=== PATIENT | female | born 1950 | race Caucasian/White ===

== ENCOUNTER 2024-09-29 18:08 | Inpatient (IN) ==
--- NOTE | 2024-09-29 18:55 | DR.EXTPAIN ---
HPI Time seen Time Seen by Provider: 09/29/24 18:55 PCP Primary Care Physician: Gissell Rocha Complaint/Symptoms Chief Complaint:: Pt fell at home today, c/o right thigh, right knee pain COVID-19 Coronavirus risk:travel/contact w/high risk person: No Has patient experienced Coronavirus symptoms: No Source History Provided: EMS Mode of arrival Mode of Arrival: EMS Timing Onset of Chief Complaint: 09/29/24 PMH PMH Past Medical History: Yes Past Medical History: Anxiety, CVA, Depression, Dyslipidemia and Hypertension Past Medical History Comment: hx CVA with right paresis Past Surgical History: Yes Family History History of Family Medical Conditions: Yes Social History Lives Where: Home Travel Risk Coronavirus risk:travel/contact w/high risk person: No Has patient experienced Coronavirus symptoms: No Infectious screening In the last 2 months have you had wt loss of >10#?: NO Have you had fever, night sweats or hemotysis?: No Have you traveled outside the country in the last 6 months?: No Isolation: Standard ROS Review of Systems Constitutional: No Symptoms Reported and See HPI PE Vital Signs Vitals: Vital Signs Temperature 98.9 F Pulse Rate 76 Pulse Rate 75 Pulse Rate 75 Pulse Rate 74 Pulse Rate 76 Pulse Rate 76 Pulse Rate 73 Pulse Rate 72 Pulse Rate 72 Pulse Rate 76 Pulse Rate 76 Pulse Rate 77 Pulse Rate 77 Pulse Rate 78 Respiratory Rate 18 Respiratory Rate 23 Blood Pressure 148/80 Blood Pressure 139/66 Blood Pressure 122/63 Blood Pressure 124/60 Blood Pressure 124/60 Blood Pressure 115/61 Blood Pressure 114/61 Blood Pressure 112/69 Blood Pressure 112/69 O2 Sat by Pulse Oximetry 92 O2 Sat by Pulse Oximetry 95 O2 Sat by Pulse Oximetry 94 O2 Sat by Pulse Oximetry 95 O2 Sat by Pulse Oximetry 96 O2 Sat by Pulse Oximetry 94 O2 Sat by Pulse Oximetry 93 O2 Sat by Pulse Oximetry 93 O2 Sat by Pulse Oximetry 93 O2 Sat by Pulse Oximetry 92 O2 Sat by Pulse Oximetry 93 O2 Sat by Pulse Oximetry 91 O2 Sat by Pulse Oximetry 91 O2 Sat by Pulse Oximetry 93 O2 Sat by Pulse Oximetry 94 ROR Labs Reviewed 09/29/24 19:10 09/29/24 19:10 Laboratory: WBC 12.2 X10^3/uL (3.6-10.0) H 09/29/24 19:10 RBC 4.70 X10^6/uL (3.5-5.4) 09/29/24 19:10 Hgb 14.3 g/dL (12.0-16.0) 09/29/24 19:10 Hct 42.6 % (36.0-47.0) 09/29/24 19:10 MCV 90.5 fL (80.0-100.0) 09/29/24 19:10 MCH 30.3 pg (27.0-34.0) 09/29/24 19:10 MCHC 33.5 g/dL (33.0-35.0) 09/29/24 19:10 RDW 13.9 % (11.6-16.5) 09/29/24 19:10 Plt Count 215 X10^3/uL (150.0-450.0) 09/29/24 19:10 MPV 8.1 fL (7.4-11.0) 09/29/24 19:10 Neut % (Auto) 78.5 % (42.0-75.0) H 09/29/24 19:10 Lymph % (Auto) 12.8 % (21.0-51.0) L 09/29/24 19:10 [place] % (Auto) 8.5 % (0.0-13.0) 09/29/24 19:10 Eos % (Auto) 0.0 % (0.9-2.9) L 09/29/24 19:10 Baso % (Auto) 0.2 % (0.2-1.0) 09/29/24 19:10 Neut # (Auto) 9.6 x10^3/uL (2.2-4.8) H 09/29/24 19:10 Lymph # (Auto) 1.6 X10^3/uL (1.3-2.9) 09/29/24 19:10 [place] # (Auto) 1.0 x10^3/uL (0.3-0.8) H 09/29/24 19:10 Eos # (Auto) 0.0 x10^3/uL (0.0-0.2) 09/29/24 19:10 Baso # (Auto) 0.0 X10^3/uL (0.0-0.1) 09/29/24 19:10 Absolute Nucleated RBC 0.1 /100WBC 09/29/24 19:10 PT 14.0 SECONDS (11.8-14.3) 09/29/24 19:10 INR Target Range - 09/29/24 19:10 INR 1.06 (0.8-1.3) 09/29/24 19:10 D-Dimer Cancelled 09/29/24 19:10 Sodium 140 mmol/L (136-145) 09/29/24 19:10 Corrected Sodium 140 mmol/L (136-145) 09/29/24 19:10 Potassium 4.1 mmol/L (3.5-5.1) 09/29/24 19:10 Chloride 104 mmol/L (98-107) 09/29/24 19:10 Carbon Dioxide 21.4 mmol/L (21-32) 09/29/24 19:10 BUN 22 mg/dL (7-18) H 09/29/24 19:10 Creatinine 1.25 mg/dL (0.55-1.02) H 09/29/24 19:10 Est GFR (MDRD) Af Amer 54 (>60) L 09/29/24 19:10 Est GFR (MDRD) Non-Af 44 (>60) L 09/29/24 19:10 Glucose 115 mg/dL (65-99) H 09/29/24 19:10 Calcium 9.0 mg/dL (8.5-10.1) 09/29/24 19:10 Corrected Calcium TNP 09/29/24 19:10 Total Bilirubin 1.00 mg/dL (0.2-1.0) 09/29/24 19:10 AST 50 Units/L (15-37) H 09/29/24 19:10 ALT 29 Units/L (12-78) 09/29/24 19:10 Alkaline Phosphatase 88 Units/L (46-116) 09/29/24 19:10 Creatine Kinase 2296 Units/L (26-192) H 09/29/24 19:10 Creatine Kinase Cancelled 09/29/24 19:10 Troponin I High Sens 45.5 ng/L (4.0-60.0) 09/29/24 19:10 B-Natriuretic Peptide 44.7 pg/mL (0-79) 09/29/24 19:10 Total Protein 8.9 g/dL (6.4-8.2) H 09/29/24 19:10 Albumin 3.5 g/dL (3.4-5.0) 09/29/24 19:10 Globulin 5.4 g/dL (2.5-4.5) H 09/29/24 19:10 Albumin/Globulin Ratio 0.6 Ratio (1.1-2.1) L 09/29/24 19:10 Specimen Type Catherized urine 09/29/24 21:16 Urine Color Straw (YELLOW) 09/29/24 21:16 Urine Appearance Slightly hazy (CLEAR) 09/29/24 21:16 Urine pH 7.0 (5.0 - 8.0) 09/29/24 21:16 Ur Specific [place] 1.015 (1.000-1.030) 09/29/24 21:16 Urine Protein 1+ (NEGATIVE) 09/29/24 21:16 Urine Glucose (UA) Negative (NEGATIVE) 09/29/24 21:16 Urine Ketones Negative (NEGATIVE) 09/29/24 21:16 Urine Blood 3+ (NEGATIVE) 09/29/24 21:16 Urine Nitrite Negative (NEGATIVE) 09/29/24 21:16 Urine Bilirubin Negative (NEGATIVE) 09/29/24 21:16 Urine Urobilinogen Normal (NORMAL) 09/29/24 21:16 Ur Leukocyte Esterase 1+ (NEGATIVE) 09/29/24 21:16 Urine RBC 5-10 /HPF (0-3) A 09/29/24 21:16 Urine WBC 10-20 /HPF (0-5) A 09/29/24 21:16 Ur Squamous Epith Cells Negative /HPF (NEGATIVE) 09/29/24 21:16 Urine Bacteria 3+ /HPF (NEGATIVE) 09/29/24 21:16 Ur Culture Indicated? Yes/culture set up 09/29/24 21:16 Opioid Opioid Risk Tool Age (Phil box if 16-45): No History of Preadolescent Sexual Abuse: No Total: 0 Total Score Risk Category: Low Risk Copyright: Mario Alberto HARLEY predicting aberrant behaviors Discharge Plan Diagnosis Discharge Problem: UTI (urinary tract infection), Rhabdomyolysis, Acute pain of left thigh, Acute renal failure Discharge Plan Patient Disposition: ADMITTED INPATIENT Condition: Stable Orders to Discharge Patient Discharge Orders: Transfer (Routine); Ordered 09/29/24 Ordered By: CORTEZ PEREZ
--- NOTE | 2024-09-29 19:13 | EKG ---
Test Reason : fall Blood Pressure : */* mmHG Vent. Rate : 73 BPM Atrial Rate : 73 BPM P-R Int : 160 ms QRS Dur : 70 ms QT Int : 518 ms P-R-T Axes : 53 14 61 degrees QTc Int : 570 ms Normal sinus rhythm Nonspecific ST and T wave abnormality Prolonged QT Abnormal ECG No previous ECGs available Confirmed by Idris Pierre MD ([id number]) on 09/30/2024 6:12:09 AM Referred By: Confirmed By: Idris Pierre MD
[2024-09-29 19:25] LABS: BASOPHILS % (AUTO) 0.2 % (0.2-1.0); HEMATOCRIT 42.6 % (36.0-47.0); HEMOGLOBIN 14.3 g/dL (12.0-16.0); LYMPHOCYTES # (AUTO) 1.6 X10^3/uL (1.3-2.9); LYMPHOCYTES % (AUTO) 12.8 % (21.0-51.0); MEAN CORPUSCULAR HEMOGLOBIN 30.3 pg (27.0-34.0); MEAN CORPUSCULAR HGB CONC 33.5 g/dL (33.0-35.0); MEAN CORPUSCULAR VOLUME 90.5 fL (80.0-100.0); MEAN PLATELET VOLUME 8.1 fL (7.4-11.0); MONOCYTES % (AUTO) 8.5 % (0.0-13.0); NEUTROPHILS # (AUTO) 9.6 x10^3/uL (2.2-4.8); NEUTROPHILS % (AUTO) 78.5 % (42.0-75.0); PLATELET COUNT 215 X10^3/uL (150.0-450.0); RED CELL DISTRIBUTION WIDTH 13.9 % (11.6-16.5); WHITE BLOOD COUNT 12.2 X10^3/uL (3.6-10.0)
[2024-09-29 19:27] LABS: INR 1.06 (0.8-1.3)
[2024-09-29 19:42] LABS: ALANINE AMINOTRANSFERASE 29 Units/L (12-78); ALBUMIN 3.5 g/dL (3.4-5.0); ALKALINE PHOSPHATASE 88 Units/L (46-116); ASPARTATE AMINO TRANSFERASE 50 Units/L (15-37); BLOOD UREA NITROGEN 22 mg/dL (7-18); CARBON DIOXIDE 21.4 mmol/L (21-32); CHLORIDE 104 mmol/L (98-107); COR NA(FOR HYPERGLY) 140 mmol/L (136-145); CREATININE 1.25 mg/dL (0.55-1.02); GLUCOSE 115 mg/dL (65-99); POTASSIUM 4.1 mmol/L (3.5-5.1); SODIUM 140 mmol/L (136-145); TOTAL PROTEIN 8.9 g/dL (6.4-8.2); eGFR NON BLACK RACES 44 (>60)
[2024-09-29 19:43] LABS: CREATINE KINASE 2296 Units/L (26-192)
[2024-09-29] MEDS: NS 1,000 ML IV 1,000 ML IV ONE (20:09)
--- NOTE | 2024-09-29 20:17 | CT ---
EXAM: HEAD (TRAUMA) HISTORY: Pt fell at home today, c/o right thigh, right knee pain; COMPARISON: None. TECHNIQUE: Axial non-contrast images of the head were obtained with coronal and sagittal reformats provided. Radiation dose: 822.74 mGy-cm total DLP FINDINGS: No abnormal areas of acute attenuation in the brain parenchyma. Large area of encephalomalacia in the left parietal lobe. Garg-white differentiation remains intact. No intracranial, extra-axial, fluid collection. No hemorrhage. Periventricular chronic microvascular disease. No mass, mass effect or midline shift. Age related brain parenchymal global atrophy. No ventriculomegaly. No acute fracture. Sinuses are well aerated. Mastoid air cells are well aerated. Globes and intra-orbital contents are unremarkable. IMPRESSION: No acute intracranial abnormality identified. THIS IS AN ELECTRONICALLY VERIFIED FINAL REPORT 09/29/2024 8:14 PM - Electronically signed by Cecil Evans MD
--- NOTE | 2024-09-29 21:00 | CT ---
EXAM: CERVICAL SPINE W/O CON HISTORY: Pt fell at home today, c/o right thigh, right knee pain; COMPARISON: None. TECHNIQUE: Axial non-contrast images of the cervical spine with coronal and sagittal reformats. Radiation dose: 145.16 mGy-cm total DLP FINDINGS: Vertebral body heights are maintained with normal alignment. Mild degenerative disc disease at C5-C6 and C6-C7. No fracture identified. Posterior elements are intact without jumped or perched facets. Prevertebral soft tissues are normal. Atlantoaxial articulation is intact. Soft tissues are unremarkable. Lung apices are unremarkable. IMPRESSION: No imaging findings of acute traumatic cervical spine injury. THIS IS AN ELECTRONICALLY VERIFIED FINAL REPORT 09/29/2024 8:57 PM - Electronically signed by Cecil Evans MD
[2024-09-29 21:25] LABS: BILIRUBIN,URINE NEGATIVE (NEGATIVE); BLOOD/HEMOGLOBIN,URINE 3+ (NEGATIVE); GLUCOSE, URINE NEGATIVE (NEGATIVE); KETONES,URINE NEGATIVE (NEGATIVE); LEUKOCYTE ESTERASE ,URINE 1+ (NEGATIVE); NITRITES,URINE NEGATIVE (NEGATIVE); PROTEIN,URINE 1+ (NEGATIVE); UROBILINOGEN,URINE NORMAL (NORMAL)
[2024-09-29 21:26] LABS: APPEARANCE,URINE SLIGHTLY HAZY (CLEAR); COLOR,URINE STRAW (YELLOW)
[2024-09-29 21:35] LABS: SQUAMOUS EPITHELIAL CELL,UR NEGATIVE /HPF (NEGATIVE)
[2024-09-29 21:36] LABS: BACTERIA,URINE 3+ /HPF (NEGATIVE)
[2024-09-29] MEDS ORDERED: ROCEPHIN VIAL 1 GRAM ONE (21:45)
[2024-09-29] MEDS: ROCEPHIN VIAL 1 GRAM 1 G in NS 100 ML IV 100 ML IV ONE (21:48)
[2024-09-29] MEDS ORDERED: NORCO 5/325 MG TAB ONE (22:00)
[2024-09-29] MEDS: NORCO 5/325 MG TAB PO ONE (22:02)
[2024-09-29 23:53] VITALS: BMI 28.0
[2024-09-30] MEDS ORDERED: ZOFRAN INJ 4 MG VIAL IVP PRN (00:04)
[2024-09-30] MEDS: MORPHINE SULFATE INJ 4 MG IVP PRN (00:36)
[2024-09-30] MEDS: NS 1,000 ML IV 1,000 ML ONE (00:39)
[2024-09-30] MEDS: NS 1,000 ML IV 1,000 ML IV SCH (00:40)
[2024-09-30 05:51] LABS: BASOPHILS % (AUTO) 0.3 % (0.2-1.0); EOSINOPHILS # (AUTO) 0.1 x10^3/uL (0.0-0.2); EOSINOPHILS % (AUTO) 1.4 % (0.9-2.9); HEMATOCRIT 40.7 % (36.0-47.0); HEMOGLOBIN 13.9 g/dL (12.0-16.0); LYMPHOCYTES # (AUTO) 1.7 X10^3/uL (1.3-2.9); MEAN CORPUSCULAR HEMOGLOBIN 31.3 pg (27.0-34.0); MEAN CORPUSCULAR HGB CONC 34.1 g/dL (33.0-35.0); MEAN CORPUSCULAR VOLUME 91.9 fL (80.0-100.0); MEAN PLATELET VOLUME 8.4 fL (7.4-11.0); MONOCYTES # (AUTO) 0.8 x10^3/uL (0.3-0.8); NEUTROPHILS # (AUTO) 6.1 x10^3/uL (2.2-4.8); NEUTROPHILS % (AUTO) 70.3 % (42.0-75.0); PLATELET COUNT 170 X10^3/uL (150.0-450.0); RED BLOOD COUNT 4.43 X10^6/uL (3.5-5.4); WHITE BLOOD COUNT 8.7 X10^3/uL (3.6-10.0)
[2024-09-30 05:52] LABS: INR 1.07 (0.8-1.3)
[2024-09-30 06:05] LABS: ALANINE AMINOTRANSFERASE 27 Units/L (12-78); ALKALINE PHOSPHATASE 76 Units/L (46-116); ASPARTATE AMINO TRANSFERASE 45 Units/L (15-37); BLOOD UREA NITROGEN 19 mg/dL (7-18); CALCIUM 8.5 mg/dL (8.5-10.1); CARBON DIOXIDE 23.3 mmol/L (21-32); CHLORIDE 109 mmol/L (98-107); CHOL/HDL RATIO 2.8 (0.0-5.0); CHOLESTEROL 135 mg/dL (0-200); COR CA(FOR HYPOALB) 9.3 mg/dL (8.5-10.1); CREATININE 1.12 mg/dL (0.55-1.02); GLUCOSE 108 mg/dL (65-99); HDL CHOLESTEROL 48 mg/dL (40-60); MAGNESIUM 2.1 mg/dL (2.0-2.9); POTASSIUM 3.8 mmol/L (3.5-5.1); SODIUM 143 mmol/L (136-145); TOTAL PROTEIN 7.9 g/dL (6.4-8.2); TRIGLYCERIDES 117 mg/dL (0-150); eGFR NON BLACK RACES 50 (>60)
[2024-09-30 06:06] LABS: CREATINE KINASE 1893 Units/L (26-192)
--- NOTE | 2024-09-30 06:09 | RAD ---
EXAM: FEMUR, RIGHT HISTORY: Pt fell at home today, c/o right thigh, right knee pain; Unavailable COMPARISON: None. FINDINGS: No acute cortical disruption or dislocation can be identified. Femoral head is well seated within the acetabula. Moderate degenerative osteoarthritic changes are present involving the right hip. Mild degenerative changes involving the right knee joint. No significant soft tissue swelling or injury can be seen. IMPRESSION: Moderate degenerative osteoarthritic changes right hip. Mild degenerative osteoarthritic changes right knee. No acute bony abnormality THIS IS AN ELECTRONICALLY VERIFIED FINAL REPORT 09/30/2024 6:06 AM - Electronically signed by Artem Ltitle MD
[2024-09-30] MEDS: PLAVIX PO SCH (11:35)
[2024-09-30] MEDS: CELEXA PO SCH (11:36)
[2024-09-30] MEDS: LOVENOX INJ 40 MG SYR SC SCH (11:36)
[2024-09-30 12:31] LABS: BILIRUBIN,URINE NEGATIVE (NEGATIVE); BLOOD/HEMOGLOBIN,URINE 3+ (NEGATIVE); GLUCOSE, URINE NEGATIVE (NEGATIVE); KETONES,URINE NEGATIVE (NEGATIVE); LEUKOCYTE ESTERASE ,URINE 3+ (NEGATIVE); NITRITES,URINE POSITIVE (NEGATIVE); PROTEIN,URINE 2+ (NEGATIVE); UROBILINOGEN,URINE NORMAL (NORMAL)
[2024-09-30 12:40] LABS: APPEARANCE,URINE HAZY (CLEAR); COLOR,URINE YELLOW (YELLOW)
[2024-09-30 12:41] LABS: BACTERIA,URINE 1+ /HPF (NEGATIVE); SQUAMOUS EPITHELIAL CELL,UR FEW /HPF (NEGATIVE)
[2024-09-30] MEDS: CATAPRES TAB 0.1 MG PO SCH (20:43)
[2024-09-30] MEDS: ELAVIL PO SCH (20:43)
[2024-09-30] MEDS: ROCEPHIN VIAL 1 GRAM 1 G in NS 100 ML IV 100 ML IV SCH (20:43)
[2024-10-01 06:34] LABS: BASOPHILS % (AUTO) 0.1 % (0.2-1.0); EOSINOPHILS # (AUTO) 0.1 x10^3/uL (0.0-0.2); EOSINOPHILS % (AUTO) 1.8 % (0.9-2.9); HEMATOCRIT 34.7 % (36.0-47.0); HEMOGLOBIN 11.9 g/dL (12.0-16.0); LYMPHOCYTES # (AUTO) 1.7 X10^3/uL (1.3-2.9); LYMPHOCYTES % (AUTO) 21.2 % (21.0-51.0); MEAN CORPUSCULAR HEMOGLOBIN 31.4 pg (27.0-34.0); MEAN CORPUSCULAR HGB CONC 34.3 g/dL (33.0-35.0); MEAN CORPUSCULAR VOLUME 91.7 fL (80.0-100.0); MEAN PLATELET VOLUME 8.4 fL (7.4-11.0); MONOCYTES # (AUTO) 0.6 x10^3/uL (0.3-0.8); MONOCYTES % (AUTO) 8.1 % (0.0-13.0); NEUTROPHILS # (AUTO) 5.4 x10^3/uL (2.2-4.8); NEUTROPHILS % (AUTO) 68.8 % (42.0-75.0); PLATELET COUNT 149 X10^3/uL (150.0-450.0); RED BLOOD COUNT 3.78 X10^6/uL (3.5-5.4); RED CELL DISTRIBUTION WIDTH 13.7 % (11.6-16.5); WHITE BLOOD COUNT 7.9 X10^3/uL (3.6-10.0)
[2024-10-01 06:56] LABS: ALANINE AMINOTRANSFERASE 24 Units/L (12-78); ALBUMIN 2.5 g/dL (3.4-5.0); ALKALINE PHOSPHATASE 65 Units/L (46-116); ASPARTATE AMINO TRANSFERASE 37 Units/L (15-37); BLOOD UREA NITROGEN 13 mg/dL (7-18); CARBON DIOXIDE 19.9 mmol/L (21-32); CHLORIDE 107 mmol/L (98-107); COR CA(FOR HYPOALB) 9.2 mg/dL (8.5-10.1); CREATININE 0.94 mg/dL (0.55-1.02); GLUCOSE 98 mg/dL (65-99); POTASSIUM 3.6 mmol/L (3.5-5.1); SODIUM 139 mmol/L (136-145); TOTAL PROTEIN 6.1 g/dL (6.4-8.2); eGFR NON BLACK RACES > 60 (>60)
[2024-10-01 06:58] LABS: CREATINE KINASE 1239 Units/L (26-192)
[2024-10-01] MEDS: COLACE CAP 100 MG PO PRN (08:10)
[2024-10-01] MEDS: PROTONIX INJ 40 MG VIAL IVP SCH (14:52)
--- NOTE | 2024-10-01 18:06 | NOTE.SOAP ---
Soap Note Note for Day of Date of Exam: 10/01/24 Subjective Data Subjective Data: No acute events overnight. Admitted for UTI and rhabdo. Still feels a little weak but improved. Mercer in place with lemonade-colored urine. Objective Data Objective Data: Elderly female in no acute distress. Hearing intact conversation. Heart regular rate and rhythm. Lungs are clear. Speech is strong. Head NCAT, EOMI, hearing grossly intact. Assessment Assessment: 1. Acute UTI with urine culture pending 2. Rhabdomyolysis 3. Mild anemia with mild thrombocytopenia Plan Plan: Continue current. Continue IV fluids. Monitor for signs of fluid overload. Mercer care. Monitor labs closely. CPK is downtrending.
[2024-10-01] MEDS: MILK OF MAGNESIA PO PRN (22:01)
[2024-10-02 05:59] LABS: BASOPHILS % (AUTO) 0.2 % (0.2-1.0); EOSINOPHILS # (AUTO) 0.1 x10^3/uL (0.0-0.2); EOSINOPHILS % (AUTO) 1.9 % (0.9-2.9); HEMATOCRIT 33.1 % (36.0-47.0); HEMOGLOBIN 11.4 g/dL (12.0-16.0); LYMPHOCYTES # (AUTO) 1.4 X10^3/uL (1.3-2.9); LYMPHOCYTES % (AUTO) 20.5 % (21.0-51.0); MEAN CORPUSCULAR HEMOGLOBIN 31.5 pg (27.0-34.0); MEAN CORPUSCULAR HGB CONC 34.5 g/dL (33.0-35.0); MEAN CORPUSCULAR VOLUME 91.4 fL (80.0-100.0); MEAN PLATELET VOLUME 8.5 fL (7.4-11.0); MONOCYTES # (AUTO) 0.6 x10^3/uL (0.3-0.8); MONOCYTES % (AUTO) 9.1 % (0.0-13.0); NEUTROPHILS # (AUTO) 4.5 x10^3/uL (2.2-4.8); NEUTROPHILS % (AUTO) 68.3 % (42.0-75.0); PLATELET COUNT 156 X10^3/uL (150.0-450.0); RED BLOOD COUNT 3.63 X10^6/uL (3.5-5.4); RED CELL DISTRIBUTION WIDTH 13.8 % (11.6-16.5); WHITE BLOOD COUNT 6.7 X10^3/uL (3.6-10.0)
[2024-10-02 06:10] LABS: ALANINE AMINOTRANSFERASE 31 Units/L (12-78); ALBUMIN 2.2 g/dL (3.4-5.0); ALKALINE PHOSPHATASE 67 Units/L (46-116); ASPARTATE AMINO TRANSFERASE 36 Units/L (15-37); BLOOD UREA NITROGEN 11 mg/dL (7-18); CALCIUM 7.7 mg/dL (8.5-10.1); CARBON DIOXIDE 25.9 mmol/L (21-32); CHLORIDE 105 mmol/L (98-107); COR CA(FOR HYPOALB) 9.1 mg/dL (8.5-10.1); COR NA(FOR HYPERGLY) 137 mmol/L (136-145); CREATININE 0.92 mg/dL (0.55-1.02); GLUCOSE 115 mg/dL (65-99); MAGNESIUM 1.9 mg/dL (2.0-2.9); POTASSIUM 3.6 mmol/L (3.5-5.1); SODIUM 137 mmol/L (136-145); TOTAL PROTEIN 5.7 g/dL (6.4-8.2); eGFR NON BLACK RACES > 60 (>60)
[2024-10-02] MEDS ORDERED: CONSULT PHARMACY - POTASSIUM & MAGNESIUM XX SCH (07:00)
[2024-10-02] MEDS: MAG-OX TAB PO SCH (09:02)
[2024-10-02] MEDS: K-DUR TAB 20 MEQ PO SCH (09:03)
--- NOTE | 2024-10-02 16:08 | NOTE.SOAP ---
Soap Note Note for Day of Date of Exam: 10/02/24 Subjective Data Subjective Data: No overnight events. Seen with nurse for morning rounds. Mild anemia with no leukocytosis. Objective Data Objective Data: Well-developed, well-nourished and in no acute distress. Head NCAT. Hearing intact conversation. Heart regular rate and rhythm. Bowel sounds present. Lungs clear. Assessment Assessment: 1. UTI, GNR growing. 2. Rhabdomyolysis, acute, nontraumatic. 3. Generalized weakness. Plan Plan: Continue current. May benefit from rehab. Awaiting culture results.
[2024-10-03] MEDS: ROBITUSSIN DM PO PRN (00:04)
[2024-10-03] MEDS: TYLENOL 325 MG TAB PO PRN (00:04)
[2024-10-03 05:55] LABS: BASOPHILS % (AUTO) 0.3 % (0.2-1.0); EOSINOPHILS # (AUTO) 0.2 x10^3/uL (0.0-0.2); HEMATOCRIT 33.6 % (36.0-47.0); HEMOGLOBIN 11.7 g/dL (12.0-16.0); LYMPHOCYTES # (AUTO) 1.4 X10^3/uL (1.3-2.9); LYMPHOCYTES % (AUTO) 26.8 % (21.0-51.0); MEAN CORPUSCULAR HEMOGLOBIN 31.5 pg (27.0-34.0); MEAN CORPUSCULAR HGB CONC 34.8 g/dL (33.0-35.0); MEAN CORPUSCULAR VOLUME 90.8 fL (80.0-100.0); MEAN PLATELET VOLUME 8.6 fL (7.4-11.0); MONOCYTES # (AUTO) 0.7 x10^3/uL (0.3-0.8); MONOCYTES % (AUTO) 12.5 % (0.0-13.0); NEUTROPHILS % (AUTO) 57.4 % (42.0-75.0); PLATELET COUNT 172 X10^3/uL (150.0-450.0); RED CELL DISTRIBUTION WIDTH 13.7 % (11.6-16.5); WHITE BLOOD COUNT 5.2 X10^3/uL (3.6-10.0)
[2024-10-03 06:11] LABS: ALANINE AMINOTRANSFERASE 30 Units/L (12-78); ALBUMIN 2.1 g/dL (3.4-5.0); ALKALINE PHOSPHATASE 63 Units/L (46-116); ASPARTATE AMINO TRANSFERASE 25 Units/L (15-37); BLOOD UREA NITROGEN 11 mg/dL (7-18); CALCIUM 8.1 mg/dL (8.5-10.1); CARBON DIOXIDE 25.9 mmol/L (21-32); CHLORIDE 108 mmol/L (98-107); COR CA(FOR HYPOALB) 9.6 mg/dL (8.5-10.1); CREATINE KINASE 230 Units/L (26-192); CREATININE 0.95 mg/dL (0.55-1.02); GLUCOSE 105 mg/dL (65-99); MAGNESIUM 2.2 mg/dL (2.0-2.9); POTASSIUM 3.8 mmol/L (3.5-5.1); SODIUM 141 mmol/L (136-145); TOTAL PROTEIN 5.8 g/dL (6.4-8.2); eGFR NON BLACK RACES > 60 (>60)
[2024-10-03] MEDS ORDERED: CONSULT PHARMACY - POTASSIUM & MAGNESIUM XX SCH (07:00)
[2024-10-03 08:07] VITALS: RESP 18
[2024-10-03] MEDS: K-DUR TAB 20 MEQ PO SCH (08:21)
[2024-10-03] MEDS: CIPRO IV 400 MG PREMIX* 400 MG/200 ML IV.SOLN. IV SCH (09:46)
--- NOTE | 2024-10-03 12:48 | DR.H&P ---
H&P History & Physical for Day of: H&P Date: 09/30/24 Chief Complaint Chief Complaint: generalized weakness dysuria History of Present Illness History of Present Illness: Patient is a 77-year-old female with a past medical history of CVA, hyperlipidemia, hypertension, mixed anxiety/depression, presenting with right lower extremity pain, generalized weakness, and dysuria. She reports symptoms presented for the past 2 to 3 days and progressively worsened. She did have some confusion. Labs/imaging: WBC 8.7, hemoglobin 13.9, platelets 170, sodium 143, potassium 3.8, creatinine 1.12, glucose 108. CK22 [id number] 93, UA positive, urine culture pending, x-ray revealed degenerative changes moderate on the right hip and mild on the right knee. No other acute findings. CT of the head was negative for any intracranial findings, CT of the cervical was also negative. Patient was admitted for acute cystitis, rhabdomyolysis, generalized weakness. She was started on IV fluids, IV antibiotics. Will order PT/OT. Restart home medications. Otherwise continue with current treatment plan. Continue closely monitor and follow-up labs/imaging. Past Medical History Past Medical History: Anxiety, CVA, Depression, Dyslipidemia and Hypertension Past Surgical History Surgical History: Social History Does patient currently use any type of tobacco product: No Type of Tobacco Use: None Does any household member use tobacco: No Alcohol Use: None Drug Use: None Medications Home Medications: Home Medications Medication Instructions Recorded Confirmed Type amitriptyline 25 mg tablet 25 mg PO QHS 09/29/2409/29 History citalopram 20 mg tablet 20 mg PO QDAY 09/29/2409/29 History clonidine HCl 0.1 mg tablet 0.1 mg PO QHS 09/29/2404/13 History clopidogrel 75 mg tablet 75 mg PO QDAY 09/29/2409/29 History ondansetron 4 mg disintegrating 4 mg PO Q6H PRN 09/29/24 History tablet simvastatin 40 mg tablet 40 mg PO QPM 09/29/24 History Allergies Allergies Allergy/AdvReac Type Severity Reaction Status Date / Time No Known Allergies Allergy Verified 09/29/24 18:11 Labs 10/03/24 05:25 10/03/24 05:25 Labs: Laboratory WBC 8.7 X10^3/uL (3.6-10.0) 09/30/24 05:18 RBC 4.43 X10^6/uL (3.5-5.4) 09/30/24 05:18 Hgb 13.9 g/dL (12.0-16.0) 09/30/24 05:18 Hct 40.7 % (36.0-47.0) 09/30/24 05:18 MCV 91.9 fL (80.0-100.0) 09/30/24 05:18 MCH 31.3 pg (27.0-34.0) 09/30/24 05:18 MCHC 34.1 g/dL (33.0-35.0) 09/30/24 05:18 RDW 14.0 % (11.6-16.5) 09/30/24 05:18 Plt Count 170 X10^3/uL (150.0-450.0) 09/30/24 05:18 MPV 8.4 fL (7.4-11.0) 09/30/24 05:18 Neut % (Auto) 70.3 % (42.0-75.0) 09/30/24 05:18 Lymph % (Auto) 19.0 % (21.0-51.0) L 09/30/24 05:18 [place] % (Auto) 9.0 % (0.0-13.0) 09/30/24 05:18 Eos % (Auto) 1.4 % (0.9-2.9) 09/30/24 05:18 Baso % (Auto) 0.3 % (0.2-1.0) 09/30/24 05:18 Neut # (Auto) 6.1 x10^3/uL (2.2-4.8) H 09/30/24 05:18 Lymph # (Auto) 1.7 X10^3/uL (1.3-2.9) 09/30/24 05:18 [place] # (Auto) 0.8 x10^3/uL (0.3-0.8) 09/30/24 05:18 Eos # (Auto) 0.1 x10^3/uL (0.0-0.2) 09/30/24 05:18 Baso # (Auto) 0.0 X10^3/uL (0.0-0.1) 09/30/24 05:18 Absolute Nucleated RBC 0.1 /100WBC 09/30/24 05:18 PT 14.0 SECONDS (11.8-14.3) 09/30/24 05:18 INR Target Range - 09/30/24 05:18 INR 1.07 (0.8-1.3) 09/30/24 05:18 APTT 29.9 SECONDS (22.9-36.5) 09/30/24 05:18 PTT Comment - 09/30/24 05:18 D-Dimer Cancelled 09/29/24 19:10 Sodium 143 mmol/L (136-145) 09/30/24 05:18 Corrected Sodium TNP 09/30/24 05:18 Potassium 3.8 mmol/L (3.5-5.1) 09/30/24 05:18 Chloride 109 mmol/L (98-107) H 09/30/24 05:18 Carbon Dioxide 23.3 mmol/L (21-32) 09/30/24 05:18 BUN 19 mg/dL (7-18) H 09/30/24 05:18 Creatinine 1.12 mg/dL (0.55-1.02) H 09/30/24 05:18 Est GFR (MDRD) Af Amer > 60 (>60) 09/30/24 05:18 Est GFR (MDRD) Non-Af 50 (>60) L 09/30/24 05:18 Glucose 108 mg/dL (65-99) H 09/30/24 05:18 Calcium 8.5 mg/dL (8.5-10.1) 09/30/24 05:18 Corrected Calcium 9.3 mg/dL (8.5-10.1) 09/30/24 05:18 Magnesium 2.1 mg/dL (2.0-2.9) 09/30/24 05:18 Total Bilirubin 0.60 mg/dL (0.2-1.0) 09/30/24 05:18 AST 45 Units/L (15-37) H 09/30/24 05:18 ALT 27 Units/L (12-78) 09/30/24 05:18 Alkaline Phosphatase 76 Units/L (46-116) 09/30/24 05:18 Creatine Kinase 1893 Units/L (26-192) H 09/30/24 05:18 Troponin I High Sens 45.5 ng/L (4.0-60.0) 09/29/24 19:10 B-Natriuretic Peptide 44.7 pg/mL (0-79) 09/29/24 19:10 Total Protein 7.9 g/dL (6.4-8.2) 09/30/24 05:18 Albumin 3.0 g/dL (3.4-5.0) L 09/30/24 05:18 Globulin 4.9 g/dL (2.5-4.5) H 09/30/24 05:18 Albumin/Globulin Ratio 0.6 Ratio (1.1-2.1) L 09/30/24 05:18 Triglycerides 117 mg/dL (0-150) 09/30/24 05:18 Cholesterol 135 mg/dL (0-200) 09/30/24 05:18 LDL Cholesterol, Calc 64 mg/dL (0-100) 09/30/24 05:18 HDL Cholesterol 48 mg/dL (40-60) 09/30/24 05:18 Cholesterol/HDL Ratio 2.8 (0.0-5.0) 09/30/24 05:18 Specimen Type Catherized urine 09/29/24 21:16 Urine Color Straw (YELLOW) 09/29/24 21:16 Urine Appearance Slightly hazy (CLEAR) 09/29/24 21:16 Urine pH 7.0 (5.0 - 8.0) 09/29/24 21:16 Ur Specific [place] 1.015 (1.000-1.030) 09/29/24 21:16 Urine Protein 1+ (NEGATIVE) 09/29/24 21:16 Urine Glucose (UA) Negative (NEGATIVE) 09/29/24 21:16 Urine Ketones Negative (NEGATIVE) 09/29/24 21:16 Urine Blood 3+ (NEGATIVE) 09/29/24 21:16 Urine Nitrite Negative (NEGATIVE) 09/29/24 21:16 Urine Bilirubin Negative (NEGATIVE) 09/29/24 21:16 Urine Urobilinogen Normal (NORMAL) 09/29/24 21:16 Ur Leukocyte Esterase 1+ (NEGATIVE) 09/29/24 21:16 Urine RBC 5-10 /HPF (0-3) A 09/29/24 21:16 Urine WBC 10-20 /HPF (0-5) A 09/29/24 21:16 Ur Squamous Epith Cells Negative /HPF (NEGATIVE) 09/29/24 21:16 Urine Bacteria 3+ /HPF (NEGATIVE) 09/29/24 21:16 Ur Culture Indicated? Yes/culture set up 09/29/24 21:16 Review of Systems Constitutional: Weakness Eyes: No Symptoms Reported ENT: No Symptoms Reported Respiratory: No Symptoms Reported Cardiovascular: No Symptoms Reported Gastrointestinal: No Symptoms Reported Genitourinary: Dysuria Musculoskeletal: No Symptoms Reported Skin: No Symptoms Reported Neurological: No Symptoms Reported Physical Exam Vital Signs: Vital Signs Temperature 98.0 F Pulse Rate [Left Radial] 76 Respiratory Rate 18 Blood Pressure [Left Arm] 129/63 O2 Sat by Pulse Oximetry 93 Oriented: Normal Eyes: Normal Ear: Normal Nose: Normal Throat: Normal Respiratory: Clear Throughout Cardiovascular: Normal : Normal Auscultation: Bowel Sounds: Normal Palpation: Normal Tenderness: Normal Skin: Normal Musculoskeletal: Normal Psychiatric: Normal Mood Description: Calm and Appropriate Affect: Normal Speech Pattern: Clear and Appropriate Assessment/Plan (1) UTI (urinary tract infection): Qualifiers: Urinary tract infection type: acute cystitis Hematuria presence: with hematuria Qualified Code(s): N30.01 - Acute cystitis with hematuria Status: Acute Plan: IVF, IV antibiotics F/u culture results. (2) Rhabdomyolysis: Qualifiers: Rhabdomyolysis type: non-traumatic Qualified Code(s): M62.82 - Rhabdomyolysis Status: Acute Plan: IVF Review H&P Reviewed: Yes Patient was examined?: Yes
--- NOTE | 2024-10-03 16:22 | PCM.PROG ---
Progress Note Progress Note for Day of Date of Exam: 10/03/24 Subjective Subjective: Patient seen at bedside, no acute events overnight. She is currently admitted for generalized weakness, rhabdomyolysis and UTI. Urine culture pending. Patient reports feeling better. Labs/imaging reviewed: - WBC 5.2 hemoglobin 11.7 creatinine 0.95 creatinine kinase 230 - Urine culture gram-negative rods Plan: Continue hydration and IV antibiotics. Follow-up pending cultures. Wean O2 as tolerated. Add DuoNebs, order chest x-ray. Physical therapy evaluation. Continue home medications. Replace electrolytes as per protocol. Monitor a.m. labs and imaging. Past Medical Family Social History Allergies: Allergies No Known Allergies Allergy (Verified 09/29/24 18:11) Vital Signs and I&O's Vital Signs: Vital Signs Temperature 97.6 F Temperature 97.9 F Pulse Rate [Left Radial] 71 Pulse Rate [Left Radial] 66 Respiratory Rate 18 Respiratory Rate 18 Respiratory Rate 18 Respiratory Rate 18 Blood Pressure [Left Arm] 124/58 Blood Pressure [Left Arm] 105/56 O2 Sat by Pulse Oximetry 98 O2 Sat by Pulse Oximetry 96 Intake and Output: Intake & Output 09/30/24 10/01/24 10/02/24 10/03/24 23:59 23:59 23:59 23:59 Intake Total 3638 / 3638 4126 / 4126 4660 / 4660 1790 / 1790 Output Total 1000 / 1000 1974 / 1974 3320 / 3320 1002 / 1002 Balance 2638 / 2638 2151 / 2151 1340 / 1340 788 / 788 Physical Exam Oriented: Normal Eyes: Normal Ear: Normal Nose: Normal Throat: Normal Respiratory: Generalized and Diminished Cardiovascular: Normal Auscultation: Bowel Sounds: Normal Palpation: Normal Tenderness: Normal Skin: Normal Musculoskeletal: Normal Psychiatric: Normal Mood Description: Calm and Appropriate Affect: Normal Speech Pattern: Clear and Appropriate Laboratory and Diagnostics 10/03/24 05:25 10/03/24 05:25 Labs: 09/29/24 21:16 Urine,Catheterized Urine Culture - Final Enterobacter Intermedius Laboratory WBC 5.2 X10^3/uL (3.6-10.0) 10/03/24 05:25 RBC 3.70 X10^6/uL (3.5-5.4) 10/03/24 05:25 Hgb 11.7 g/dL (12.0-16.0) L 10/03/24 05:25 Hct 33.6 % (36.0-47.0) L 10/03/24 05:25 MCV 90.8 fL (80.0-100.0) 10/03/24 05:25 MCH 31.5 pg (27.0-34.0) 10/03/24 05:25 MCHC 34.8 g/dL (33.0-35.0) 10/03/24 05:25 RDW 13.7 % (11.6-16.5) 10/03/24 05:25 Plt Count 172 X10^3/uL (150.0-450.0) 10/03/24 05:25 MPV 8.6 fL (7.4-11.0) 10/03/24 05:25 Neut % (Auto) 57.4 % (42.0-75.0) 10/03/24 05:25 Lymph % (Auto) 26.8 % (21.0-51.0) 10/03/24 05:25 [place] % (Auto) 12.5 % (0.0-13.0) 10/03/24 05:25 Eos % (Auto) 3.0 % (0.9-2.9) H 10/03/24 05:25 Baso % (Auto) 0.3 % (0.2-1.0) 10/03/24 05:25 Neut # (Auto) 3.0 x10^3/uL (2.2-4.8) 10/03/24 05:25 Lymph # (Auto) 1.4 X10^3/uL (1.3-2.9) 10/03/24 05:25 [place] # (Auto) 0.7 x10^3/uL (0.3-0.8) 10/03/24 05:25 Eos # (Auto) 0.2 x10^3/uL (0.0-0.2) 10/03/24 05:25 Baso # (Auto) 0.0 X10^3/uL (0.0-0.1) 10/03/24 05:25 Absolute Nucleated RBC 0.0 /100WBC 10/03/24 05:25 PT 14.0 SECONDS (11.8-14.3) 09/30/24 05:18 INR Target Range - 09/30/24 05:18 INR 1.07 (0.8-1.3) 09/30/24 05:18 APTT 29.9 SECONDS (22.9-36.5) 09/30/24 05:18 PTT Comment - 09/30/24 05:18 D-Dimer Cancelled 09/29/24 19:10 Sodium 141 mmol/L (136-145) 10/03/24 05:25 Corrected Sodium TNP 10/03/24 05:25 Potassium 3.8 mmol/L (3.5-5.1) 10/03/24 05:25 Chloride 108 mmol/L (98-107) H 10/03/24 05:25 Carbon Dioxide 25.9 mmol/L (21-32) 10/03/24 05:25 BUN 11 mg/dL (7-18) 10/03/24 05:25 Creatinine 0.95 mg/dL (0.55-1.02) 10/03/24 05:25 Est GFR (MDRD) Af Amer > 60 (>60) 10/03/24 05:25 Est GFR (MDRD) Non-Af > 60 (>60) 10/03/24 05:25 Glucose 105 mg/dL (65-99) H 10/03/24 05:25 Calcium 8.1 mg/dL (8.5-10.1) L 10/03/24 05:25 Corrected Calcium 9.6 mg/dL (8.5-10.1) 10/03/24 05:25 Magnesium 2.2 mg/dL (2.0-2.9) 10/03/24 05:25 Total Bilirubin 0.50 mg/dL (0.2-1.0) 10/03/24 05:25 AST 25 Units/L (15-37) 10/03/24 05:25 ALT 30 Units/L (12-78) 10/03/24 05:25 Alkaline Phosphatase 63 Units/L (46-116) 10/03/24 05:25 Creatine Kinase 230 Units/L (26-192) H 10/03/24 05:25 Troponin I High Sens 45.5 ng/L (4.0-60.0) 09/29/24 19:10 B-Natriuretic Peptide 44.7 pg/mL (0-79) 09/29/24 19:10 Total Protein 5.8 g/dL (6.4-8.2) L 10/03/24 05:25 Albumin 2.1 g/dL (3.4-5.0) L 10/03/24 05:25 Globulin 3.7 g/dL (2.5-4.5) 10/03/24 05:25 Albumin/Globulin Ratio 0.6 Ratio (1.1-2.1) L 10/03/24 05:25 Triglycerides 117 mg/dL (0-150) 09/30/24 05:18 Cholesterol 135 mg/dL (0-200) 09/30/24 05:18 LDL Cholesterol, Calc 64 mg/dL (0-100) 09/30/24 05:18 HDL Cholesterol 48 mg/dL (40-60) 09/30/24 05:18 Cholesterol/HDL Ratio 2.8 (0.0-5.0) 09/30/24 05:18 Specimen Type Catherized urine 09/30/24 12:15 Urine Color Yellow (YELLOW) 09/30/24 12:15 Urine Appearance Hazy (CLEAR) 09/30/24 12:15 Urine pH 6.0 (5.0 - 8.0) 09/30/24 12:15 Ur Specific [place] 1.020 (1.000-1.030) 09/30/24 12:15 Urine Protein 2+ (NEGATIVE) 09/30/24 12:15 Urine Glucose (UA) Negative (NEGATIVE) 09/30/24 12:15 Urine Ketones Negative (NEGATIVE) 09/30/24 12:15 Urine Blood 3+ (NEGATIVE) 09/30/24 12:15 Urine Nitrite Positive (NEGATIVE) 09/30/24 12:15 Urine Bilirubin Negative (NEGATIVE) 09/30/24 12:15 Urine Urobilinogen Normal (NORMAL) 09/30/24 12:15 Ur Leukocyte Esterase 3+ (NEGATIVE) 09/30/24 12:15 Urine RBC 10-20 /HPF (0-3) A 09/30/24 12:15 Urine WBC Tntc /HPF (0-5) A 09/30/24 12:15 Ur Squamous Epith Cells Few /HPF (NEGATIVE) 09/30/24 12:15 Amorphous Sediment Trace /HPF (NEGATIVE) 09/30/24 12:15 Urine Bacteria 1+ /HPF (NEGATIVE) 09/30/24 12:15 Ur Culture Indicated? No/not indicated 09/30/24 12:15 Plan (1) UTI (urinary tract infection): Status: Acute Qualifiers: Hematuria presence: with hematuria Urinary tract infection type: acute cystitis Qualified Code(s): N30.01 - Acute cystitis with hematuria Plan: IVF, IV antibiotics F/u culture results. (2) Rhabdomyolysis: Status: Acute Qualifiers: Rhabdomyolysis type: non-traumatic Qualified Code(s): M62.82 - Rhabdomyolysis Plan: IVF (3) Acute renal failure: Status: Acute (4) Generalized weakness: Status: Acute
[2024-10-03] MEDS: DUONEB 0.5 MG/3 MG (3 mL) NEB SCH (20:12)
[2024-10-04 06:06] LABS: BASOPHILS % (AUTO) 0.1 % (0.2-1.0); EOSINOPHILS # (AUTO) 0.1 x10^3/uL (0.0-0.2); EOSINOPHILS % (AUTO) 2.7 % (0.9-2.9); HEMOGLOBIN 10.9 g/dL (12.0-16.0); LYMPHOCYTES # (AUTO) 1.1 X10^3/uL (1.3-2.9); LYMPHOCYTES % (AUTO) 20.2 % (21.0-51.0); MEAN CORPUSCULAR HEMOGLOBIN 31.2 pg (27.0-34.0); MEAN CORPUSCULAR HGB CONC 34.2 g/dL (33.0-35.0); MEAN CORPUSCULAR VOLUME 91.3 fL (80.0-100.0); MEAN PLATELET VOLUME 8.3 fL (7.4-11.0); MONOCYTES # (AUTO) 0.6 x10^3/uL (0.3-0.8); MONOCYTES % (AUTO) 11.1 % (0.0-13.0); NEUTROPHILS # (AUTO) 3.5 x10^3/uL (2.2-4.8); NEUTROPHILS % (AUTO) 65.9 % (42.0-75.0); PLATELET COUNT 186 X10^3/uL (150.0-450.0); RED CELL DISTRIBUTION WIDTH 13.9 % (11.6-16.5); WHITE BLOOD COUNT 5.3 X10^3/uL (3.6-10.0)
[2024-10-04 06:24] LABS: ALANINE AMINOTRANSFERASE 24 Units/L (12-78); ALKALINE PHOSPHATASE 59 Units/L (46-116); ASPARTATE AMINO TRANSFERASE 17 Units/L (15-37); BLOOD UREA NITROGEN 9 mg/dL (7-18); CHLORIDE 106 mmol/L (98-107); COR CA(FOR HYPOALB) 9.6 mg/dL (8.5-10.1); COR NA(FOR HYPERGLY) 139 mmol/L (136-145); CREATINE KINASE 145 Units/L (26-192); CREATININE 0.87 mg/dL (0.55-1.02); GLUCOSE 112 mg/dL (65-99); POTASSIUM 3.8 mmol/L (3.5-5.1); SODIUM 139 mmol/L (136-145); TOTAL PROTEIN 5.6 g/dL (6.4-8.2); eGFR NON BLACK RACES > 60 (>60)
[2024-10-04] MEDS ORDERED: CONSULT PHARMACY - POTASSIUM & MAGNESIUM XX SCH (07:00)
--- NOTE | 2024-10-04 08:35 | RAD ---
EXAM: CHEST, 1 VIEW HISTORY: sob; COMPARISON: None. r.br.br.br.br.br.br rotation. Unremarkable cardiac silhouette. No focal consolidation, large pleural effusion, or visible pneumothorax. No displaced rib fractures. IMPRESSION: No acute cardiopulmonary findings. THIS IS AN ELECTRONICALLY VERIFIED FINAL REPORT 10/04/2024 8:21 AM - Electronically signed by Omar Bateman MD
[2024-10-04] MEDS: K-DUR TAB 20 MEQ PO SCH (08:47)
[2024-10-04] MEDS: MAG-OX TAB PO SCH (08:47)
[2024-10-04 11:40] VITALS: BP 112/58; PULSE 73; TEMP 97.4; O2SAT 90
== END 2024-10-04 15:00 | disposition home or self-care (01) | DRG 690 ==
LOC: ER 18:08 → MED/SURG 22:06
PROVIDERS: ADMIT Family Medicine; ATTEND Internal Medicine